=== PATIENT | male | born 1940 | race Caucasian/White ===

== ENCOUNTER 2018-05-26 12:20 | Emergency (ER) | payer MEDICARE ==
[~2018-05-26] VITALS: Ht 180.3 cm; Wt 72.7 kg
[~2018-05-26 12:20] MED LIST: ESZO2TAB22 PO; MULT-1179 PO; NAPR220T67 PO; NEBI2.5T3 PO; OMEG300C3 PO; UBID30CA11 PO
[2018-05-26 12:37] VITALS: BP 169/71
== END 2018-05-26 13:01 | disposition home or self-care (01) ==
LOC: ER 12:21
DX: T16.1XXA Foreign body in right ear, initial encounter (principal); I10 Essential (primary) hypertension; K21.9 Gastro-esophageal reflux disease without esophagitis; M19.90 Unspecified osteoarthritis, unspecified site; Z88.2 Allergy status to sulfonamides; Z88.1 Allergy status to other antibiotic agents; Z88.8 Allergy status to other drugs, medicaments and biological substances; Z79.899 Other long term (current) drug therapy; Y92.9 Unspecified place or not applicable
CPT/HCPCS: 99284

== ENCOUNTER 2023-08-05 11:01 | Outpatient (CLI) | payer MEDICARE ==
[~2023-08-05 11:01] MED LIST changes: +NEBI2.5T2 PO; -NEBI2.5T3 PO
== END 2023-08-05 23:59 | disposition home or self-care (01) ==
LOC: RAD 11:01
PROVIDERS: ATTEND Orthopaedic Surgery Adult Reconstructive Orthopaedic Surgery
DX: Z01.810 Encounter for preprocedural cardiovascular examination (principal); R00.8 Other abnormalities of heart beat
CPT/HCPCS: 93005